=== PATIENT | male | born 1995 | race Hispanic/Latino ===

== ENCOUNTER 2018-07-31 06:58 | Emergency (ER) | payer OTHER ==
[2018-07-31 07:08] VITALS: RESP 16; BMI 24.3
[2018-07-31] MEDS ORDERED: Lidocaine/Epi 1% 1:100000 20 ML IJ STA (07:28)
--- NOTE | 2018-07-31 07:31 | ED PDOC ---
HPI: Skin/Bite Injury Time Seen by Provider: 07/31/18 07:19 Chief Complaint (Nursing): Abnormal Skin Integrity History Per: Patient (state that he has in ingrown hair in his private area. has pain. it popped open this morning as he was coming to the ER. draining pus. Has pain but no fever or chills. Thinks it is from shaving.) Past Medical History Reviewed: Historical Data, Nursing Documentation, Vital Signs Vital Signs: Last Vital Signs Temp 98.3 F 07/31/18 07:21 Pulse 109 H 07/31/18 07:21 Resp 16 07/31/18 07:21 BP 139/79 07/31/18 07:21 Pulse Ox 98 07/31/18 07:21 - Medical History PMH: No Chronic Diseases - Surgical History Surgical History: No Surg Hx - Family History Family History: States: No Known Family Hx - Living Arrangements Living Arrangements: With Family - Home Medications Home Medications: Ambulatory Orders Medication Instructions Recorded Clindamycin [Cleocin] 300 mg PO TID #15 cap 07/31/18 - Allergies Allergies/Adverse Reactions: Allergies Allergy/AdvReac Type Severity Reaction Status Date / Time No Known Allergies Allergy Verified 07/31/18 07:28 Review of Systems ROS Statement: Except As Marked, All Systems Reviewed And Found Negative Constitutional: Negative for: Fever, Chills Gastrointestinal: Negative for: Nausea, Vomiting Skin: Positive for: Rash (at the base of the right scrotum) Physical Exam - Reviewed Nursing Documentation Reviewed: Yes Vital Signs Reviewed: Yes - Physical Exam Appears: Positive for: Well, No Acute Distress Head Exam: Positive for: NORMAL INSPECTION, NORMOCEPHALIC Skin: Positive for: Normal Color, Rash (abscess at base of right scrotum with opening, draining purulent material. tenderness to touch.) Eye Exam: Positive for: Normal appearance ENT: Positive for: Normal ENT Inspection Neck: Positive for: Normal Respiratory: Negative for: Respiratory Distress Extremity: Positive for: Normal ROM Neurologic/Psych: Positive for: Alert, Oriented - ECG O2 Sat by Pulse Oximetry: 98 Disposition - Clinical Impression Clinical Impression: Abscess - Patient ED Disposition Is Patient to be Admitted: No Doctor Will See Patient In The: Office Counseled Patient/Family Regarding: Diagnosis, Need For Followup, Rx Given - Disposition Referrals: Darrell Alvarenga [Outside] Disposition: Routine/Home Disposition Time: 08:20 Condition: IMPROVED Prescriptions: Clindamycin [Cleocin] 300 mg PO TID #15 cap Instructions: Abscess Incision and Drainage Forms: [facility] ([place]), [facility] ED School/Work Excuse - POA Present On Arrival: None - Incision & Drainage Of Abscess Anesthesia: Lidocaine 1%, With Epi Prep Used: Betadine (patient tolerated procedure well) Procedure: Incised W/Scalpel Blade#: (11), Drained Pus, Probed To Break Up Loculations, Packed W/Gauze
[2018-07-31] MEDS ORDERED: Lidocaine 1% w Epi 1:100,000 Inj ONE (07:56)
[2018-07-31 09:29] VITALS: BP 130/72; PULSE 81; TEMP 98; O2SAT 99
== END 2018-07-31 09:29 | disposition home or self-care (01) ==
LOC: H.ER 06:58
DX: L02.214 Cutaneous abscess of groin (principal)